=== PATIENT | male | born 1980 | race Two or more races ===

== ENCOUNTER 2017-03-07 07:19 | Emergency (ER) | payer OTHER ==
--- NOTE | ~2017-03-07 | CR230 ---
[facility] A Service of [facility] & [facility] RADIOLOGY TEXT RESULTS PATIENT: CLYDE NANCE LOCATION: [facility] : 78 UNIT #: [id number] AGE: [address]: Juliana Mercedes MD SEX: M ORDER DR: [id number] [facility] [address] [place], [place] [address] [id number] MR#: [id number] Acc #: [id number] NAME: CLYDE NANCE : 1980 SEX: M STUDY DATE/TIME: 03/07/2017 8:15 UNIT: [facility] ROOM: STUDY DESCRIPTION: CR Shoulder Min 2 View Rt Attending Physician: Juliana Mercedes M.D. Ordering Physician: Juliana Mercedes M.D. Primary Care Physician: Primary Care Physician No MEDICAL IMAGING REPORT This report is preliminary unless electronic signature is present EXAM Right shoulder, 03/07 HISTORY Shoulder pain and decreased range of motion after being thrown from a horse this morning. FINDINGS Three views of the right shoulder were obtained. No comparison. No fracture or dislocation is seen. There is no AC joint separation. IMPRESSION Negative right shoulder. Dictated by... Tariq Warner Jr., M.D. THIS IS AN ELECTRONICALLY VERIFIED REPORT Tariq Warner Jr., M.D. at 03/07/2017 3:37 PM SHANKAR/geoff TD: 03/07/2017 13:29 JOB #: [id number] MEDICAL IMAGING REPORT Page 1 of 1 COPY
--- NOTE | ~2017-03-07 | CR63 ---
[facility] A Service of [facility] & [facility] RADIOLOGY TEXT RESULTS PATIENT: CLYDE NANCE LOCATION: [facility] : 78 UNIT #: [id number] AGE: [address]: Juliana Mercedes MD SEX: M ORDER DR: [id number] [facility] [address] [place], [place] [address] [id number] E MR#: [id number] Acc #: [id number] NAME: CLYDE NANCE : 1980 SEX: M STUDY DATE/TIME: 03/07/2017 8:14 UNIT: [facility] ROOM: STUDY DESCRIPTION: CR Chest 2 View Attending Physician: Juliana Mercedes M.D. Ordering Physician: Juliana Mercedes M.D. Primary Care Physician: No Primary Care Physician MEDICAL IMAGING REPORT This report is preliminary unless electronic signature is present EXAM Chest, 03/07/2017, [facility]. HISTORY 37-year-old male patient. Pain in back, right shoulder, chest following accident, thrown from a horse. Trauma occurred this a.m. FINDINGS PA and lateral chest views show borderline cardiac enlargement. Hilar structures and mediastinal contours appear normal. Bilateral lungs are fully expanded and clear. Costophrenic angles are clear. The bony thorax is intact. IMPRESSION 1. Borderline cardiac enlargement. No acute chest finding. Thoracic fracture visualized. 2. Negative chest. Dictated by... Fady Kirk M.D. THIS IS AN ELECTRONICALLY VERIFIED REPORT Fady Kirk M.D. at 03/07/2017 2:34 PM XANDER/david TD: 03/07/2017 13:28 JOB #: [id number] MEDICAL IMAGING REPORT Page 1 of 1 COPY
== END 2017-03-07 09:30 | disposition home or self-care (01) ==
LOC: CED 07:19
DX: S40.011A Contusion of right shoulder, initial encounter (principal); S20.211A Contusion of right front wall of thorax, initial encounter; V80.010A Animal-rider injured by fall from or being thrown from horse in noncollision accident, initial encounter; Y92.69 Other specified industrial and construction area as the place of occurrence of the external cause
CPT/HCPCS: 71020; 73030; 99283